=== PATIENT | male | born 1940 | race African-American/Black ===

== ENCOUNTER 2020-12-25 01:01 | Emergency (ER) | payer MEDICARE, SELFPAY ==
--- NOTE | ~2020-12-25 | CT_ITS ---
EXAMINATION: CT brain wo con INDICATION: Head injury COMPARISON: MRI, 08/11/2015 TECHNIQUE: Standard unenhanced head CT. The dose-length product (DLP) was 605.33 mGy-cm. The mA was a djusted according to patient size. Iterative reconstruction technique was employed. FINDINGS: Motion artifact slightly limits the examination. There is no acute intraparenchymal hemorrh age. No evidence of mass lesion. No evidence of acute infarction. There is moderate periventricular a nd subcortical hypodensity probably related to small vessel ischemic disease. There is mild prominenc e of the sulci and ventricles related to cerebral atrophy. Intracranial calcified cerebral atheroscle rosis is noted. There are no extra-axial collections. There is no mass effect or midline shift. The o rbits and soft tissues are unremarkable. There is chronic opacification of the right maxillary sinus . IMPRESSION: 1. No acute intracranial abnormality. 2. Age related findings. Reviewed, dictated and finalized at location A. SPECIALIST
--- NOTE | ~2020-12-25 | CT_ITS ---
EXAMINATION: CT thoracic lumbar wo con DATE: 12/25/2020 01:42 INDICATION: Back pain TECHNIQUE: Computed tomography (CT) of the thoracic and lumbar spine was performed without intravenou s contrast. The dose-length product (DLP) was 2775.22 mGy-cm. Iterative reconstruction was used. COMPARISON: None FINDINGS: Thoracic spine: There are bridging osteophytes at multiple levels in the spine, consistent with diffu se idiopathic skeletal hyperostosis (DISH). The vertebral body heights and alignment are normal. Ther e is mild loss of intervertebral disc space narrowing at several levels in the thoracic spine. No fra cture is identified. Cardiomegaly is noted. There are patchy airspace opacities in the lungs. Lumbar spine: There is no fracture, dislocation, or subluxation. The vertebral body heights are maint ained. There is severe loss of intervertebral disc space height at L4-5 and moderate loss of interver tebral disc space height at L2-3 and L3-4. Degenerative endplate changes are noted in the L2-L5 verte bral bodies. The prevertebral soft tissues are normal. Calcified atherosclerosis is noted. There is a 4 mm stone in the right kidney lower pole. IMPRESSION: 1. Mild thoracic spondylosis without acute findings. 2. Moderate to severe lumbar spondylosis. 3. Cardiomegaly. 4. Patchy opacities of the lungs which could reflect atelectasis. Reviewed, dictated and finalized at location A. BINDER CHIEF
--- NOTE | ~2020-12-25 | XR_ITS ---
EXAMINATION: XR hip BI 2V w AP pelvis DATE: 12/25/2020 02:19 INDICATION: Hip pain TECHNIQUE: AP view the pelvis and two views of each hip were obtained. COMPARISON: None. FINDINGS: Bone alignment is normal. There is no fracture. There is moderate osteoarthritis of the hip s. There is calcified atherosclerosis. A penile implant is noted. IMPRESSION: 1. Osteoarthritis without acute osseous abnormality. Reviewed, dictated and finalized at location A. INUOUS IMPROVEMENT COACH
--- NOTE | ~2020-12-25 | XR_ITS ---
EXAMINATION: XR shoulder RT min 2V INDICATION: Right shoulder pain TECHNIQUE: Four views of the right shoulder are obtained on five radiographs. COMPARISON: None FINDINGS: Normal alignment. No fracture. There is mild osteoarthritis of the acromioclavicular and gl enohumeral joints. Soft tissues are unremarkable. IMPRESSION: 1. No acute osseous abnormality. Reviewed, dictated and finalized at location A. OILER
--- NOTE | ~2020-12-25 | CT_ITS ---
EXAMINATION: CT cervical spine wo con DATE: 12/25/2020 01:41 INDICATION: Neck pain TECHNIQUE: Computed tomography (CT) of the cervical spine was performed without intravenous contrast. The dose-length product (DLP) was 436.38 mGy-cm. Automated exposure control and iterative reconstruc tion technique were employed. COMPARISON: None FINDINGS: There is no fracture, dislocation, or subluxation. There is moderate loss of intervertebral disc space height at C6-7. The vertebral body heights are maintained. The odontoid is intact. There is severe facet osteoarthritis on the right at C4-5. There is mild multilevel uncovertebral joint ost eoarthritis. The prevertebral soft tissues are normal. IMPRESSION: 1. Mild to moderate cervical spondylosis without acute findings. Reviewed, dictated and finalized at location A. NISTRATIVE LIAISON
[2020-12-25 01:02] VITALS: BP 124/66; PULSE 102; RESP 20; TEMP 36.6; O2SAT 98
--- NOTE | 2020-12-25 01:59 | ED.GENADULT ---
HPI - General Adult General Chief complaint: Head Injury Stated complaint: fall Time Seen by Provider: 12/25/20 01:04 History of Present Illness HPI narrative: Patient is a 80-year-old gentleman who presents the emergency department with chief complaint of back pain and headache and neck pain. The patient reports that several days ago he fell and plain film x-rays were ordered but stated that they were not able to be completed. Patient states that he has pain in his back states it is worse with movement. Patient states he called EMS tonight because he wanted to be checked out further and did not feel like he had a thorough enough evaluation prior to arrival Review of Systems Review of Systems: Narrative: A 10 system review of systems was completed on the patient and is negative except for what is stated in the HPI. Nursing and ancillary documentation was reviewed. PMFSH Comments Past medical history significant for hypertension diabetes coronary artery disease hyperlipidemia BPH COPD CHF renal failure generalized weakness Social history the patient is a resident of a local care facility Exam Narrative: Exam Narrative: GENERAL: Well-appearing, well-nourished, and in no acute distress. HEAD: Normocephalic, atraumatic. EYES: PERRLA and EOMI. ENT: Nares clear, no rhinorrhea or epistaxis. Mucous membranes moist. NECK: Supple. CHEST: Clear to auscultation. No respiratory distress. HEART: Regular rate and rhythm. No murmur heard. Normal peripheral pulses. ABDOMEN: Soft, nontender, nondistended, normal active bowel sounds. EXTREMITIES: Normal range of motion. No edema. SKIN: Warm, dry, no rash. NEURO: No focal deficits. Alert and oriented x3. PSYCH: Normal mood and affect. Course Course Emergency Course: Plain film x-ray of the right shoulder and bilateral hip showed no evidence of fracture CT of the head C-spine T and L-spine showed no evidence of acute abnormality. Vital Signs Vital signs: Vital Signs Temperature 36.6 C 12/25/20 01:02 Pulse Rate 102 H 12/25/20 01:02 Respiratory Rate 20 12/25/20 01:02 Blood Pressure 124/66 12/25/20 01:02 Pulse Oximetry 98 12/25/20 01:02 Temperature 36.6 C 12/25/20 01:02 Pulse Rate 102 H 12/25/20 01:02 Respiratory Rate 20 12/25/20 01:02 Blood Pressure 124/66 12/25/20 01:02 Pulse Oximetry 98 12/25/20 01:02 Medical Decision Making Vital Signs Vital Signs: Vital Signs Temperature 36.6 C 12/25/20 01:02 Pulse Rate 102 H 12/25/20 01:02 Respiratory Rate 20 12/25/20 01:02 Blood Pressure 124/66 12/25/20 01:02 Pulse Oximetry 98 12/25/20 01:02 Temperature 36.6 C 12/25/20 01:02 Pulse Rate 102 H 12/25/20 01:02 Respiratory Rate 20 12/25/20 01:02 Blood Pressure 124/66 12/25/20 01:02 Pulse Oximetry 98 12/25/20 01:02 Discharge Plan Discharge Clinical Impression: Acute hip pain, bilateral Head injury Qualifiers: Encounter type: initial encounter Qualified Code(s): S09.90XA - Unspecified injury of head, initial encounter Fall Qualifiers: Encounter type: initial encounter Qualified Code(s): W19.XXXA - Unspecified fall, initial encounter Back pain Qualifiers: Back pain location: back pain in unspecified location Chronicity: acute Back pain laterality: midline Qualified Code(s): M54.9 - Dorsalgia, unspecified Patient Disposition: Home, Self-Care Condition: Stable Instructions: Antibiotic Form, Head Injury (ED), Back Pain (ED), Fall Prevention (ED), Shoulder Pain (ED), Hip Pain (ED) Additional Instructions: Please follow-up with your primary care physician in the next 2 to 3 days Follow-up/Referrals: Thang De La Cruz MD [Primary Care Provider] - Time of Disposition: 02:38
[2020-12-25 04:12] VITALS: BP 118/70; PULSE 96; RESP 18; O2SAT 96
--- NOTE | 2020-12-25 04:35 | PC.NURSE ---
spoke with Trena at [facility] concerning pt disposition.
== END 2020-12-25 05:41 ==
PROVIDERS: Emergency Provider Emergency Medicine; PCP Family Medicine
DX: S09.90XA Unspecified injury of head, initial encounter (principal); M54.9 Dorsalgia, unspecified; M25.552 Pain in left hip; M25.551 Pain in right hip; E11.9 Type 2 diabetes mellitus without complications; I25.10 Atherosclerotic heart disease of native coronary artery without angina pectoris; E78.5 Hyperlipidemia, unspecified; N40.0 Benign prostatic hyperplasia without lower urinary tract symptoms; J44.9 Chronic obstructive pulmonary disease, unspecified; I50.9 Heart failure, unspecified; N19 Unspecified kidney failure; I11.0 Hypertensive heart disease with heart failure; M16.0 Bilateral primary osteoarthritis of hip; M47.812 Spondylosis without myelopathy or radiculopathy, cervical region; W19.XXXA Unspecified fall, initial encounter
CPT/HCPCS: 70450; 72125; 72128; 72131; 73030; 73521; 99284

== ENCOUNTER 2020-12-28 11:06 | Emergency (ER) | payer MEDICARE, SELFPAY ==
[2020-12-28 11:33] VITALS: BP 75/50; PULSE 93; RESP 16; TEMP 36.7; O2SAT 97
--- NOTE | 2020-12-28 11:35 | ECG_ITS ---
Measurements Intervals [place] Rate: 90 P: 54 ID: [id number] QRS: 69 QRSD: 85 T: 91 QT: 362 QTc: 444 Interpretive Statements SINUS RHYTHM NONSPECIFIC T-WAVE ABNORMALITY- INF/HIGH LAT LEADS BORDERLINE ECG Electronically Signed On 12-28-2020 12:03:55 PATTERN CLEANER by Gabe Jackson D.O.
--- NOTE | 2020-12-28 11:41 | ED.SYNCOPE ---
HPI - Syncope General Chief Complaint: Syncope Stated Complaint: syncope Time Seen by Provider: 12/28/20 11:11 History of Present Illness HPI narrative: 80 yo male w/ h/o ESRD on dialysis, DM presents to the ED for syncope. He reportedly had a brief loss of consciousness today at the senior living. Afterwards they were having a hard time getting him to stay awake. He thinks this was because they would not give him anything to eat. He reports poor PO intake recently. He last had dialysis yesterday. No CP, palpitations. Related Data Home Medications Medication Instructions Recorded Confirmed Aspir-81 81 mg PO DAILY 12/28/20 Breo Ellipta 1 puff INFILTRATION DAILY 12/28/20 Ca citrate-mag citrate-vit D3 296 ml PO DAILY PRN 12/28/20 Dulcolax (bisacodyl) 10 mg RECTAL DAILY PRN 12/28/20 allopurinol 100 mg PO DAILY 12/28/20 atorvastatin 80 mg PO DAILY 12/28/20 cefuroxime axetil 500 mg PO 6XW 12/28/20 ciprofloxacin HCl 1 drp LEFT EYE QID 12/28/20 finasteride 5 mg PO DAILY 12/28/20 furosemide [Lasix] 80 mg PO 3XW 12/28/20 Allergies Allergy/AdvReac Type Severity Reaction Status Date / Time No Known Allergies Allergy Verified 12/28/20 12:57 Review of Systems Review of Systems: All systems reviewed & are unremarkable except as noted in HPI and below Constitutional: Constitutional: Reports fatigue and Denies fever(s) Eyes: Eyes: Reports no additional eye complaints ENT: Reports system reviewed and no additional complaints, except as documented Cardiovascular: Cardiovascular: Denies chest pain Respiratory: Respiratory: Denies dyspnea Gastrointestinal: Gastrointestinal: Denies abdominal pain and Denies nausea Genitourinary: Genitourinary: Denies dysuria Musculoskeletal: Musculoskeletal: Denies back pain Neurologic: Denies confusion, Denies dizziness, Reports syncope and Denies weakness [facility] Past Medical History Medical History (Updated 12/31/20 @ 15:35 by Harman Jaramillo MD) Diabetes mellitus ESRD (end stage renal disease) on dialysis Social History Social History (Updated 12/31/20 @ 15:36 by Harman Jaramillo MD) Living arrangements: senior living Exam Const: General: no acute distress and ill appearing chronically Nutritional Appearance: obese Orientation/consciousness: patient oriented x3 Eyes: Conjunctivae: conjunctivae normal Pupils: Equal, round and reactive pupils present EOM: EOMs intact bilaterally Resp: Effort & Inspection: normal respiratory effort Auscultation: clear to auscultation bilaterally Cardio: Rate: regular rate Rhythm: regular rhythm GI: GI Palp: Yes Soft to palpation and No Tenderness to palpation present (GI) Skin: General skin exam: normal color Neuro: General: patient oriented x3, moves all extremities, no focal motor deficits and CN's II-XI intact bilaterally Speech: normal speech Extrem: General: edema (Trace. Appears down from baseline. ) Course Vital Signs Vital signs: Vital Signs Temperature 36.7 C 12/28/20 11:33 Pulse Rate 93 12/28/20 11:33 Respiratory Rate 16 12/28/20 11:33 Blood Pressure 75/50 L 12/28/20 11:33 Pulse Oximetry 97 12/28/20 11:33 Temperature 36.7 C 12/28/20 11:33 Pulse Rate 68 12/28/20 17:38 Respiratory Rate 18 12/28/20 17:38 Blood Pressure 124/78 12/28/20 17:38 Pulse Oximetry 99 12/28/20 17:38 MDM - Syncope MDM Narrative Medical decision making narrative: BP improved with conservative fluid bolus. They likely took off too much fluid at dialysis Medical Records Attestation: I reviewed the patient's medical records. Lab Data Attestation: I reviewed the patient's lab results. Result diagrams: 12/28/20 12:43 12/28/20 12:42 Labs: Lab Results 12/28/20 12/28/20 12/28/20 Range/Units 12:07 12:41 12:42 WBC (4.5-10.0) K/mm3 RBC (4.6-6.20) M/mm3 Hgb (14.0-18.0) g/dL Hct (42.0-52.0) % MCV (80-100) fl MCH (26-34) pg MCHC
[2020-12-28] MEDS: SODIUM CHLORIDE 0.9% IV 1,000 ML 999 ML IV CONT (12:08)
[2020-12-28 12:22] LABS: Add Urine Microscopic? YES; Appearance Urine Clear (Clear); Bacteria Urine Trace /hpf; Bilirubin Urine Negative (Negative); Blood Urine Negative (Negative); Color Urine Yellow (Yellow); Glucose Urine UA 3+ mg/dL (Negative); Hyaline Casts Urine 15-19 /lpf; Ketones Urine Negative (Negative); Leukocyte Esterase Ur Trace LEU/UL (Negative); Nitrate Urine Negative (Negative); Protein Urine 2+ mg/dL (Negative); Specific Grav Ur 1.013 (1.001-1.035); Squamous Epithelial Cell Urine Few /hpf (Few); Urobilinogen Urine Negative mg/dL (<2.0)
[2020-12-28 12:26] VITALS: BP 94/56; PULSE 86; RESP 18; O2SAT 99
--- NOTE | 2020-12-28 12:41 | PC.NURSE ---
iv nurse at bedside attempting iv access
[2020-12-28 12:55] LABS: Basophils Percent Auto 0.3 % (0.2-1.2); Eosinophils Absolute Auto 0.2 K/mm3 (0-0.3); Eosinophils Percent Auto 3.4 % (0-4.4); Hematocrit 28.6 % (42.0-52.0); Hemoglobin 8.7 g/dL (14.0-18.0); Immature Granulocyte Absolute 0.03 K/mm3 (0.00-0.031); Immature Granulocyte Percent A 0.5 % (0-0.5); Lymphocytes Absolute Auto 1.22 K/mm3 (0.9-3.2); Lymphocytes Percent Auto 18.7 % (18.3-44.2); Mean Corpuscular HGB Conc 30.4 g/dl (32-36); Mean Corpuscular Hemoglobin 28.4 pg (26-34); Mean Corpuscular Volume 93.5 fl (80-100); Mean Platelet Volume 11.6 fl (7.4-10.4); Monocytes Percent Auto 15.3 % (2.6-8.5); Neutrophils Percent Auto 61.8 % (45.5-73.1); Platelet Count Result 216 k/mm3 (150-375); Red Blood Count 3.06 M/mm3 (4.6-6.20); Red Cell Distribution Width 16.2 % (11.5-14.5); White Blood Count 6.5 K/mm3 (4.5-10.0)
[2020-12-28 13:06] LABS: Anion Gap 2 mmol/L (8-16); Blood Urea Nitrogen 32 mg/dL (9-20); Calcium 9.4 mg/dL (8.4-10.2); Carbon Dioxide 34 mmol/L (22-30); Chloride 102 mmol/L (98-107); Estimated CRCL calculation 13 ml/min; Estimated Glomerular Filt Rate 15; Glucose 154 mg/dL (75-110); Potassium 5.2 mmol/L (3.4-5.0); Sodium 138 mmol/L (137-145)
[2020-12-28 13:07] LABS: Alanine Aminotransferase 21 U/L (4-50); Albumin Level 3.3 g/dL (3.5-5.1); Alkaline Phosphatase 108 U/L (38-126); Aspartate Amino Transferase 20 U/L (17-59); Bilirubin,Total 0.6 mg/dL (0.2-1.3)
[2020-12-28 14:13] VITALS: BP 88/59; PULSE 78
[2020-12-28 14:14] VITALS: BP 102/53
[2020-12-28 15:46] VITALS: BP 112/78; PULSE 78; RESP 18; O2SAT 99
[2020-12-28 17:38] VITALS: BP 124/78; PULSE 68; RESP 18; O2SAT 99
== END 2020-12-28 17:39 ==
PROVIDERS: Emergency Provider Emergency Medicine; PCP Family Medicine
DX: R55 Syncope and collapse (principal); E86.0 Dehydration; E11.22 Type 2 diabetes mellitus with diabetic chronic kidney disease; N18.6 End stage renal disease; Z99.2 Dependence on renal dialysis; R94.31 Abnormal electrocardiogram [ECG] [EKG]
CPT/HCPCS: 36415; 80048; 80076; 81001; 85025; 87086; 93005; 96360; 99284; J7030